=== PATIENT | female | born 1990 | race Two or more races ===

== ENCOUNTER 2017-01-14 14:10 | Emergency (ER) | payer MEDICAID ==
[~2017-01-14] VITALS: Ht 172.7 cm; Wt 63.0 kg
[2017-01-14 14:14] VITALS: BP 126/67
== END 2017-01-14 14:50 | disposition home or self-care (01) ==
LOC: ER 14:13
DX: S90.811A Abrasion, right foot, initial encounter (principal); F17.200 Nicotine dependence, unspecified, uncomplicated; X58.XXXA Exposure to other specified factors, initial encounter; Y92.89 Other specified places as the place of occurrence of the external cause; Y93.89 Activity, other specified; Y99.8 Other external cause status
CPT/HCPCS: 99281; A4606; Z7610; Z7502

== ENCOUNTER 2017-01-24 10:34 | Emergency (ER) | payer MEDICAID ==
[~2017-01-24] VITALS: Ht 175.3 cm; Wt 59.9 kg
[2017-01-24 10:34] VITALS: BP 107/70
--- NOTE | 2017-01-24 11:35 | NUR ---
knee immobilizer applied. pt d/c home. stable condition.
== END 2017-01-24 11:36 | disposition home or self-care (01) ==
LOC: ER 10:45
DX: S89.91XA Unspecified injury of right lower leg, initial encounter (principal); Y93.39 Activity, other involving climbing, rappelling and jumping off; Y92.89 Other specified places as the place of occurrence of the external cause; Y99.8 Other external cause status
CPT/HCPCS: 73564-TC; A4606; Z7610

== ENCOUNTER 2017-09-18 12:02 | Emergency (ER) | payer MEDICAID ==
[~2017-09-18] VITALS: Ht 172.7 cm; Wt 75.3 kg
[2017-09-18 12:02] VITALS: BP 123/81
[2017-09-18] MEDS ORDERED: IBUPROFEN 600 MG TABLET PO ONE ×2 (12:55→13:00)
== END 2017-09-18 14:33 | disposition home or self-care (01) ==
LOC: ER 12:03
DX: S86.811A Strain of other muscle(s) and tendon(s) at lower leg level, right leg, initial encounter (principal); F17.200 Nicotine dependence, unspecified, uncomplicated; W01.0XXA Fall on same level from slipping, tripping and stumbling without subsequent striking against object, initial encounter; Y93.89 Activity, other specified; Y92.89 Other specified places as the place of occurrence of the external cause; Y99.8 Other external cause status
CPT/HCPCS: 73564-TC; 84703-TC; A4606; Z7610